=== PATIENT | female | born 1950 | race Caucasian/White ===

== ENCOUNTER → 2016-12-03 | Outpatient (CLI) | payer OTHER, MEDICARE ==
--- NOTE | 2016-12-03 12:04 | US ---
Bilateral Duplex Carotid Sonography Clinical Indications: 66-year-old female with a history of medically-controlled hypertension. Rule o ut hemodynamically significant stenosis. ICD 10 Diagnostic Code: I65.23. Technique: The cervical portions of the carotid and vertebral arteries were imaged and interrogated by color and pulsed Doppler. Color and spectral Doppler analysis was performed. Cine clips are stored on PACS. Comparison Study: None. Findings: Right Carotid Artery: The common carotid artery, bifurcation, and the origin of the internal and ext ernal carotid artery are well-imaged. Doppler velocity estimates and color Doppler spectra are phuc l, with no sonographic evidence of a flow-limiting stenosis. There is some minimal echogenic wall sara que seen along the posterior margin of the carotid bulb and the proximal internal carotid artery. The peak systolic velocity in the internal carotid artery is 82 cm/s, with a peak diastolic velocity of 33 cm/s. The ICA to CCA systolic and diastolic ratios are normal. Left Carotid Artery: The common carotid artery, bifurcation, and origin of the internal and external carotid artery are well-imaged. Doppler velocity estimates and color Doppler spectra are normal, wi th no sonographic evidence of a flow-limiting stenosis. As on the contralateral side, there is some e chogenic calcific wall plaque seen along the carotid bulb. The peak systolic velocity in the internal carotid artery is 69 cm/s, with a peak diastolic velocity 28 cm/s. The ICA to CCA systolic and diast olic ratios are normal. Vertebral Arteries: Antegrade flow is shown by pulsed Doppler of each vertebral artery. The peak sys tolic velocity in the right vertebral artery is 41 cm/s, and in the left vertebral artery is 43 cm/s. Impression: 1. Mild bilateral atherosclerotic calcific plaque, with no hemodynamically significant ICA stenosis. 2. Patent, antegrade vertebral arteries. Measurement of carotid stenosis is based on velocity parameters that correlate the residual internal carotid diameter with [place] Symptomatic Carotid Endarterectomy Trial (NASCET) based stenosis levels.
--- NOTE | 2016-12-03 18:12 | US ---
Transabdominal and Endovaginal Pelvic Ultrasound Clinical History: 66-year-old female who has been postmenopausal for 20 years, and complains of cramp ing. ICD 10 Diagnostic Code: R10.2. TECHNIQUE: A curvilinear 5 MHz transducer was initially used to sonographically evaluate the pelvis, using a full urinary bladder as a window. To better assess the uterine architecture and the adnexal s tructures, endovaginal pelvic sonography was also performed. Color and spectral Doppler were used. Comparison: None. Findings: Transabdominal Pelvic Sonography: The uterus is normal in size, shape, and position, measuring 7.0 x 2.7 x 4.5 cm. The right and left adnexal regions are obscured by bowel gas.The visualized aspects of the urinary bladder are normal. Endovaginal Pelvic Sonography: The endometrium is homogeneous, and measures 1.9 mm. There are echogen ic calcified leiomyomata seen in the fundal aspect of the uterus measuring 0.9 x 0.8 x 1.0 cm and 0.5 x 0.4 x 0.4 cm. The right ovary measures 2.2 x 1.1 x 1.6 cm. The left ovary measures 2.1 x 1.1 x 1.5 cm. There are no cystic or solid adnexal masses identified. Spectral Doppler flow to each ovary is not optimally evaluated. There is no free fluid in the pelvic cul-de-sac. Impression: 1. There are couple of calcified uterine leiomyomata seen within the fundal myometrium. 2. Normal endometrium. 3. Normal appearance the ovaries given the patient's postmenopausal status. There is no adnexal mass or free fluid.
== END ==
LOC: FIMAGING 10:06
PROVIDERS: ATTEND Internal Medicine
DX: R10.2 Pelvic and perineal pain (principal); N95.0 Postmenopausal bleeding; D25.9 Leiomyoma of uterus, unspecified; I10 Essential (primary) hypertension; I70.8 Atherosclerosis of other arteries; D50.9 Iron deficiency anemia, unspecified; E03.9 Hypothyroidism, unspecified; E61.1 Iron deficiency; E78.00 Pure hypercholesterolemia, unspecified; I65.23 Occlusion and stenosis of bilateral carotid arteries; M85.80 Other specified disorders of bone density and structure, unspecified site; R30.0 Dysuria; Z79.899 Other long term (current) drug therapy; Z85.3 Personal history of malignant neoplasm of breast

== ENCOUNTER → 2016-12-31 | Outpatient (CLI) | payer OTHER, MEDICARE | LOC: FIMAGING 08:12 | PROVIDERS: ATTEND Internal Medicine | DX: Z13.820 Encounter for screening for osteoporosis (principal); M85.80 Other specified disorders of bone density and structure, unspecified site ==

== ENCOUNTER → 2018-10-09 | Outpatient (CLI) | payer OTHER, MEDICARE | LOC: FIMAGING 07:42 | PROVIDERS: ATTEND Internal Medicine | DX: Z12.31 Encounter for screening mammogram for malignant neoplasm of breast (principal); Z85.3 Personal history of malignant neoplasm of breast; Z80.3 Family history of malignant neoplasm of breast ==